=== PATIENT | male | born 1980 | race Caucasian/White ===

== ENCOUNTER 2019-01-12 01:35 | Emergency (ER) | payer MEDICAID, OTHER ==
[2019-01-12] MEDS: KETOROLAC 30 MG INJ IM (02:18)
== END 2019-01-12 02:25 | disposition home or self-care (01) ==
LOC: FTE 01:35
DX: S46.812A Strain of other muscles, fascia and tendons at shoulder and upper arm level, left arm, initial encounter (principal); X50.0XXA Overexertion from strenuous movement or load, initial encounter; Y92.000 Kitchen of unspecified non-institutional (private) residence as the place of occurrence of the external cause
CPT/HCPCS: 96372; 99284-25